=== PATIENT | female | born 1955 | race Caucasian/White ===

== ENCOUNTER → 2018-11-20 17:02 | Outpatient (REF) | payer OTHER, MEDICAID, SELFPAY ==
[2018-11-20 17:35] LABS: Alanine Aminotransferase 23 IU/L (9-52); Albumin 4.4 g/dL (3.5-5.0); Albumin Globulin Ratio 1.4 (1.0-2.8); Alkaline Phosphatase 62 U/L (38-126); Aspartate Aminotransferase 16 IU/L (14-36); BUN Creatinine Ratio 14.3 (6-22); Bilirubin Total 1.1 mg/dL (0.2-1.3); Blood Urea Nitrogen 10 mg/dL (7-17); C-Reactive Protein Quant 0.7 mg/dL (<1.0); Calcium 9.3 mg/dL (8.4-10.2); Carbon Dioxide 28 mmol/L (22-32); Chloride 104 mmol/L (98-107); Estimated Glomerular Filt Rate > 60.0 mL/min (>60); Globulin 3.2 g/dL (1.7-4.1); Glucose 81 mg/dL (80-110); HEMOLYSIS < 15 (0-50); Potassium 4.4 mmol/L (3.4-5.1); Sodium 139 mmol/L (137-145); Total Protein 7.6 g/dL (6.3-8.2); Uric Acid 4.7 mg/dL (2.5-6.2)
[2018-11-20 17:42] LABS: Add Manual Diff / Slide Review NO; Basophils Absolute Auto 0 /uL (0-100); Basophils Percent Auto 0.4 % (0-2); Eosinophils Absolute Auto 200 /uL (0-450); Eosinophils Percent Auto 3.4 % (2-4); Hematocrit 43.2 % (36-46); Hemoglobin 14.7 g/dL (12.0-16.0); Lymphocytes Absolute Auto 2000 /uL (1100-4500); Lymphocytes Percent Auto 30.1 % (25-40); Mean Corpuscular HGB Conc 34.1 % (30-36); Mean Corpuscular Volume 87.9 fL (80-100); Monocytes Absolute Auto 400 /uL (0-900); Monocytes Percent Auto 6.4 % (3-14); Neutrophils Absolute Auto 4000 /uL (1500-7000); Neutrophils Percent Auto 59.7 % (50-75); Platelet Count 276 X10^3/uL (150-400); Red Blood Cell Count 4.91 X10^6/uL (4.0-5.2); Red Cell Distribution Width 13.4 % (11.6-14.8); White Blood Cell Count 6.6 X10^3/uL (4.5-11.0)
[2018-11-20 17:48] LABS: Rheumatoid Factor < 8.6 IU/mL (<12.0)
[2018-11-20 17:58] LABS: Erythrocyte Sedimentation Rate 6 MM/HR (0-20)
[2018-11-20 18:04] LABS: Thyroid Stimulating Hormone 5.13 uIU/mL (0.47-4.68)
[2018-11-22 20:23] LABS: ANA Pattern Homogeneous; ANA Screen, IFA Positive (Negative); ANA Titer 1:40 titer (<1:40)
== END ==
LOC: LAB 17:02
PROVIDERS: Visit Provider Physician Assistant Medical
DX: E03.9 Hypothyroidism, unspecified (principal); I10 Essential (primary) hypertension; M79.641 Pain in right hand; M25.531 Pain in right wrist; M25.511 Pain in right shoulder
CPT/HCPCS: 36415; 80053; 84443; 84550; 85025; 85651; 86038; 86140; 86430

== ENCOUNTER → 2019-02-27 10:12 | Outpatient (CLI) | payer OTHER, MEDICAID, SELFPAY ==
--- NOTE | 2019-02-27 | DI.RAD.S_ITS ---
PROCEDURE: XR CERVICAL SPINE 2V OR 3V INDICATIONS: Radiculopathy, cervicothoracic region TECHNIQUE: The view(s) of the cervical spine were acquired. COMPARISON: None. FINDINGS: Bones: No fractures or dislocations to the T7 level. The lateral masses of C1 appear intact on the odontoid view. No suspicious bony lesions. There is mild degenerative disc disease at C5-C6. There is bilateral facet arthropathy, most pronounced at C4-C5 and C5-C6 on the left. Soft tissues: No prevertebral soft tissue swelling. IMPRESSION: Degenerative disc disease and facet arthropathy in cervical spine. Dictated by: Joni Willis M.D. on 02/27/2019 at 17:29 Approved by: Joni Willis M.D. on 02/27/2019 at 17:31
== END ==
PROVIDERS: PCP Physician Assistant Medical; Visit Provider Physician Assistant Medical
DX: M50.122 Cervical disc disorder at C5-C6 level with radiculopathy (principal); M47.22 Other spondylosis with radiculopathy, cervical region
CPT/HCPCS: 72040

== ENCOUNTER → 2019-05-28 12:51 | Outpatient (CLI) | payer OTHER, MEDICAID, SELFPAY ==
--- NOTE | 2019-05-28 | DI.MRI.S_ITS ---
PROCEDURE: MR CERVICAL SPINE WO CON INDICATIONS: Radiculopathy, cervical region TECHNIQUE: Noncontrast sagittal T1 spin echo and T2 fast spin echo, sagittal STIR, foraminal oblique sagittal T2 fast spin echo, and axial gradient echo or T2 fast spin echo through the cervical spine. COMPARISON: None. FINDINGS: Image quality: Excellent. Alignment and Curvature: There is normal bony alignment. Bone Marrow: Marrow demonstrates normal overall signal. Spinal Cord: Visualized spinal cord has normal size and signal. No cerebellar tonsillar herniation. Paraspinous Soft Tissues: No paravertebral masses. Prevertebral soft tissues are normal in thickness. C2-C3: Congenital canal stenosis. Moderate disc desiccation. Mild diffuse disc bulge small superimposed central protrusion. Mild facet and uncovertebral hypertrophy bilaterally. Moderate canal stenosis. Mild foraminal stenosis bilaterally. C3-C4: Congenital canal stenosis. Moderate disc desiccation. Mild diffuse disc bulge. Mild facet and uncovertebral hypertrophy bilaterally. Moderate to severe canal stenosis. Minimal anterior cord flattening. Moderate bilateral foraminal stenoses. C4-C5: Moderate disc desiccation. Mild diffuse disc bulge. Congenital canal stenosis. Mild facet and uncovertebral hypertrophy bilaterally. Moderate to severe canal stenosis. Minimal anterior cord flattening. Moderate left and mild right foraminal stenosis. C5-C6: Congenital canal stenosis. Mild disc height loss and desiccation. Mild diffuse disc bulge with superimposed broad-based central/right paracentral broad-based protrusion. Mild facet and uncovertebral hypertrophy bilaterally. Severe canal stenosis. Mild cord flattening. Moderate right and mild left foraminal stenosis. C6-C7: Congenital canal stenosis. Moderate disc desiccation. Mild diffuse disc bulge. Mild facet and uncovertebral hypertrophy bilaterally. Mild canal stenosis. No foraminal stenosis. C7-T1: Mild disc height loss and desiccation. No significant canal, nor foraminal stenosis. IMPRESSION: 1. Diffuse congenital canal stenosis, with superimposed disc and facet disease. 2. Multilevel canal stenoses, worst at C3-C4, C4-C5, and C5-C6, where there is mild cord flattening present. 3. Multilevel foraminal stenoses, worst at C3-C4, C4-C5, and C5-C6 as described above, where there are moderate foraminal stenoses present. Dictated by: Keaton Prather M.D. on 05/28/2019 at 15:05 Approved by: Keaton Prather M.D. on 05/28/2019 at 15:09
== END ==
PROVIDERS: PCP Physician Assistant Medical; Visit Provider Physician Assistant Medical
DX: M50.11 Cervical disc disorder with radiculopathy, high cervical region (principal); M48.02 Spinal stenosis, cervical region
CPT/HCPCS: 72141